=== PATIENT | male | born 1995 | race Caucasian/White ===

== ENCOUNTER 2019-02-02 14:57 | Emergency (ER) | payer BC ==
[2019-02-02] MEDS ORDERED: HYDROmorphone 0.5 MG/0.5 ML SYRINGE IVP STA (15:04)
--- NOTE | 2019-02-02 15:09 | ED ---
Lower Extremity Injury HPI - General Source: patient, family, EMS, RN notes reviewed Mode of arrival: EMS Limitations: physical limitation <Moy Oscar - Last Filed: 02/02/19 16:13> <Henri Pierre - Last Filed: 02/02/19 16:22> - General Stated Complaint: leg injury Time Seen by Provider: 02/02/19 14:59 - History of Present Illness Initial Comments: This a 23-year-old male presents emergency department via EMS chief complaint of left leg injury. Patient was at [employer] in [place] and which she went up to block a ball and states another player from outside came into the neck and landing onto his leg. Patient has severe left leg pain. He did receive fentanyl and morphine by EMS states that did help the pain somewhat he still has excruciating pain. He denies any paresthesias. Patient said no prior orthopedic surgeries. He is had multiple fractures. Patient denies head injury no loss conscious. (Moy Oscar) - Related Data Allergies Allergy/AdvReac Type Severity Reaction Status Date / Time No Known Allergies Allergy Verified 02/02/19 15:08 Review of Systems ROS Other: All systems not noted in ROS Statement are negative. <Moy Oscar - Last Filed: 02/02/19 16:13> ROS Other: All systems not noted in ROS Statement are negative. <Henri Pierre - Last Filed: 02/02/19 16:22> ROS Statement: Those systems with pertinent positive or pertinent negative responses have been documented in the HPI. General Exam General appearance: alert, in no apparent distress Head exam: Present: atraumatic, normocephalic, normal inspection Respiratory exam: Present: normal lung sounds bilaterally. Absent: respiratory distress, wheezes, rales, rhonchi, stridor Cardiovascular Exam: Present: regular rate, normal rhythm, normal heart sounds. Absent: systolic murmur, diastolic murmur, rubs, gallop, clicks Extremities exam: Present: other (Pulse equal of the lower extremities, there is obvious deformity the mid left tib-fib region there is tenting of the skin noted no open fracture noted.) Neurological exam: Present: alert, oriented X3, CN II-XII intact Skin exam: Present: warm, dry, intact, normal color. Absent: rash <Moy Oscar - Last Filed: 02/02/19 16:13> Course <Moy Oscar - Last Filed: 02/02/19 16:13> Vital Signs 02/02/19 02/02/19 02/02/19 15:03 15:50 15:53 Temperature 98.1 F Pulse Rate 84 71 78 Respiratory 20 16 14 Rate Blood Pressure 129/74 138/80 139/72 O2 Sat by Pulse 99 100 100 Oximetry 02/02/19 02/02/19 02/02/19 15:58 16:00 16:10 Temperature Pulse Rate 62 69 71 Respiratory 17 17 18 Rate Blood Pressure 147/85 135/83 129/81 O2 Sat by Pulse 100 99 98 Oximetry - Reevaluation(s) Reevaluation #1: 02/02/19 15:13 X-rays obtained in the room, reviewed on monitor. Ortho was paged (Moy Oscar) Reevaluation #2: 02/02/19 16:09 Patient had reduction of the leg in the ER with no comp patients pain is improved (Moy Oscar) Reevaluation #3: 02/02/19 16:09 I did receive a phone call from Dr. Chowdary who stated that we do not have the hardware in house at this time to fixate the leg. He did contact orthopedics at the [facility] who has a hardware and patient can be transferred. (Moy Oscar) Reevaluation #4: 02/02/19 16:13 Discuss the case with Maurilio Acharya who accepts (Moy Oscar) Procedures - Orthopedic Splinting/Casting Injury #1 Side: left Lower Extremity Injury Location: short leg Lower Extremity Immobilizer: posterior splint, synthetic pre-padded splint <Moy Oscar - Last Filed: 02/02/19 16:13> - Orthopedic Fracture Reduction Fracture #1 Consent Obtained: verbal consent Side: left Fracture Reduction Location: tibia, fibula Analgesia: procedural sedation Technique: traction/counter-traction Post Reduction X-rays Demonstrate: acceptable reduction (Partial reduction with improvement.) Post-Reduction Neuro Exam: intact Post-Reduction Vascular Exam: intact Splint Applied: Yes Patient Tolerated Procedure: well, no complications - Procedural Sedation Procedural Sedation Start Time: 15:50 Procedural Sedation Stop Time: 16:11 Indications: fracture/dislocation reduction Mallampati Airway Score: 2 Preparation: cardiac care unit nurse applied, pulse oximeter, capnometry used, supplemental O2 applied IV Etomidate Dose (mgs): 20 Complications: none Patient Tolerated Procedure: well, no complications <Henri Pierre - Last Filed: 02/02/19 16:22> Medical Decision Making <Moy Oscar - Last Filed: 02/02/19 16:13> - Medical Decision Making 23-year-old male presented from for left leg injury. Patient had attempting displaced tib-fib fracture. This was reduced in the emergency Department in a more stable position neurovascular intact. He was splinted. Patient we transferred to [facility] for, orthopedic surgeon. (Moy Oscar) Disposition - Out of Hospital Transfer - Req. Specs Out of Hospital Transfer - Requested Specifics: Other Emergency Center ([facility]) <Moy Oscar - Last Filed: 02/02/19 16:13> <Henri Pierre - Last Filed: 02/02/19 16:22> Clinical Impression: Traumatic closed displaced fracture of shaft of tibia with fibula Disposition: OTHER INSTITUTION NOT DEFINED Condition: Stable Referrals: Valdez Steen DO [Primary Care Provider] - 1-2 days
[2019-02-02] MEDS ORDERED: ETOMIDATE 2 MG/ML 10 ML VIAL IV STA (15:21)
--- NOTE | 2019-02-02 15:31 | XR ---
EXAMINATION TYPE: XR tibia fibula LT DATE OF EXAM: 02/02/2019 CLINICAL HISTORY: Volleyball injury with pain TECHNIQUE: Two views of the left leg are obtained. COMPARISON: None. FINDINGS: There is subacute or old healing fracture of the mid to distal diaphysis of the fibula. Th ere is new acute comminuted displaced fracture through proximal fibular diaphysis with slight impacti on as there is 2.3 cm osseous overlap and abnormal lateral angulation with posterior displacement at fracture site. A few small fracture fragments at fracture site are identified. There is more concerning acute oblique minimally displaced fracture mid shaft of the left tibia. Punctate densities overlying soft tissue could reflect soft tissue foreign body versus artifact relat ed to overlying blanket or wrapping material. IMPRESSION: As above. Initial encounter closed type posttraumatic fracture.
[2019-02-02] MEDS ORDERED: ETOMIDATE 2 MG/ML 10 ML VIAL IVP STA (15:58)
[2019-02-02 16:11] VITALS: RESP 18
--- NOTE | 2019-02-02 16:27 | XR ---
EXAMINATION TYPE: XR tibia fibula LT DATE OF EXAM: 02/02/2019 CLINICAL HISTORY: Post reduction. TECHNIQUE: Two views of the left leg are obtained. COMPARISON: Left leg x-ray earlier today.. FINDINGS: Overlying splint material is present making evaluation slightly suboptimal. There is commi nuted fracture mid shaft left tibia redemonstrated with increased distraction and lateral and posteri or displacement after attempted reduction. Posterior displacement measured 1.3 cm. Lateral displaceme nt measured 1.7 cm. Acute comminuted fracture proximal fibular diaphysis with small fracture fragments shows some improve ment in overlap and alignment after reduction. Healing or healed fracture mid to distal diaphysis red emonstrated. IMPRESSION: There is improved alignment of acute comminuted fracture proximal fibular diaphysis but worsened alignment in mid shaft acute comminuted fracture left tibia after reduction.
[2019-02-02] MEDS ORDERED: HYDROmorphone 1 MG/ML 1 ML SYRINGE IVP STA (16:54)
[2019-02-02 17:07] VITALS: BP 113/75; PULSE 70; TEMP 98
== END 2019-02-02 16:45 | disposition other institution (70) ==
LOC: EC 14:57
DX: S82.202A Unspecified fracture of shaft of left tibia, initial encounter for closed fracture (principal); S89.202A Unspecified physeal fracture of upper end of left fibula, initial encounter for closed fracture; S89.302D Unspecified physeal fracture of lower end of left fibula, subsequent encounter for fracture with routine healing; W03.XXXA Other fall on same level due to collision with another person, initial encounter; Y93.68 Activity, volleyball (beach) (court); Y92.89 Other specified places as the place of occurrence of the external cause
CPT/HCPCS: 73590; 99285; 27752; 99152; 96374; 96376; J1170 ×2